=== PATIENT | male | born 1940 ===

== ENCOUNTER 2017-08-18 13:27 | Emergency (ER) | payer MEDICARE, MEDICAID ==
[2017-08-18 13:28] VITALS: BMI 26.2
[2017-08-18 13:32] VITALS: TEMP 97.5; O2SAT 99
[2017-08-18] MEDS ORDERED: Sodium Chloride 0.9% 1,000 ML IV STA (14:07)
[2017-08-18] MEDS ORDERED: Metoprolol Succinate 50 mg XL Tab PO STA (14:16)
[2017-08-18 14:30] LABS: BASO # 0.1 K/uL (0.0-0.2); BASO % 1.1 % (0.0-2.0); EOS # 0.1 K/uL (0.0-0.7); EOS % 1.4 % (0.0-4.0); HEMOGLOBIN 14.8 g/dL (12.0-18.0); LYMPH # 1.7 K/uL (1.0-4.3); LYMPH % 21.8 % (20.0-40.0); MEAN CELL VOLUME 92.4 fl (80.0-94.0); MEAN CORPUSCULAR HGB CONC 33.5 g/dL (33.0-37.0); MEAN PLATELET VOLUME 8.7 fl (7.2-11.7); MONO # 0.6 K/uL (0.0-0.8); MONO % 8.2 % (0.0-10.0); NEUT # 5.3 K/uL (1.8-7.0); NEUT % 67.5 % (50.0-75.0); NRBC % 0.1 % (0.0-0.0); RBC 4.79 Mil/uL (4.40-5.90); RED CELL DISTRIBUTION WIDTH 13.2 % (11.5-14.5); WHITE BLOOD COUNT 7.8 K/uL (4.8-10.8)
--- NOTE | 2017-08-18 14:31 | ED PDOC ---
HPI: Hypertension/Hypotension Time Seen by Provider: 08/18/17 13:42 Chief Complaint (Nursing): High Blood Pressure Chief Complaint (Provider): Frontal Headahe History Per: Patient History/Exam Limitations: no limitations Onset/Duration Of Symptoms: Days (x2) Current Symptoms Are (Timing): Still Present Associated Symptoms: Headache, Other (Thirsty) Additional Complaint(s): 77 year old male presents to the Emergency Department complaining of a constant frontal headache for two days and of being thirsty. Patient claims to have run out of medicine three days ago. Sugar level measured at home was measured over 500. Took ibuprofen for pain showing some relief. Patient denies the worst headache of his life. Also denies visual changes, neck stiffness, fever, photophobia, chest pain, shortness of breath, nausea, vomiting, and abdominal pain. PMD: Dr. Teja Dudley Past Medical History Reviewed: Historical Data, Nursing Documentation, Vital Signs Vital Signs: Last Vital Signs Temp 97.5 F L 08/18/17 13:29 Pulse 93 H 08/18/17 13:29 Resp 16 08/18/17 13:29 BP 170/115 H 08/18/17 13:29 Pulse Ox 99 08/18/17 13:29 - Medical History PMH: Diabetes, HTN, Hypercholesterolemia Denies: Chronic Kidney Disease - Surgical History Surgical History: Denies: CABG - Family History Family History: States: No Known Family Hx - Social History Current smoker - smoking cessation education provided: No Alcohol: None Drugs: Denies - Home Medications Home Medications: Ambulatory Orders Medication Instructions Recorded Clopidogrel [Plavix] 75 mg PO DAILY #30 tab 08/18/17 GlipiZIDE [Glucotrol] 5 mg PO BID #60 tab 08/18/17 Isosorbide Mononitrate [Imdur] 60 mg PO DAILY #30 tab 08/18/17 Linagliptin [Tradjenta] 5 mg PO DAILY #30 tablet 08/18/17 Magnesium Aspartate Dihydrate 500 gm PO BID #60 powder 08/18/17 [Aspartic Acid Magnesium Salt] Metoprolol Succinate [Toprol XL] 50 mg PO DAILY #30 tab 08/18/17 metFORMIN [glucOPHAGE] 500 mg PO BID #60 tab 08/18/17 - Allergies Allergies/Adverse Reactions: Allergies Allergy/AdvReac Type Severity Reaction Status Date / Time No Known Allergies Allergy Verified 08/18/17 13:29 Review of Systems ROS Statement: Except As Marked, All Systems Reviewed And Found Negative Constitutional: Negative for: Fever Eyes: Negative for: Vision Change Cardiovascular: Negative for: Chest Pain Respiratory: Negative for: Shortness of Breath Gastrointestinal: Negative for: Nausea, Vomiting, Abdominal Pain Musculoskeletal: Negative for: Neck Pain (stiffness) Neurological: Positive for: Headache. Negative for: Other (denies photophobia) Physical Exam - Reviewed Nursing Documentation Reviewed: Yes Vital Signs Reviewed: Yes - Physical Exam Appears: Positive for: Non-toxic, No Acute Distress Head Exam: Positive for: ATRAUMATIC, NORMAL INSPECTION, NORMOCEPHALIC Skin: Positive for: Normal Color, Warm, Dry Eye Exam: Positive for: EOMI, Normal appearance, PERRL Neck: Positive for: Normal, Painless ROM, Supple Cardiovascular/Chest: Positive for: Regular Rate, Rhythm. Negative for: Murmur Respiratory: Positive for: Normal Breath Sounds. Negative for: Accessory Muscle Use, Respiratory Distress Gastrointestinal/Abdominal: Positive for: Normal Exam, Bowel Sounds, Soft. Negative for: Tenderness Back: Positive for: Normal Inspection. Negative for: Vertebral Tenderness Extremity: Positive for: Normal ROM. Negative for: Pedal Edema, Deformity Neurologic/Psych: Positive for: Alert, Oriented - Laboratory Results Result Diagrams: 08/18/17 14:00 08/18/17 14:25 - ECG O2 Sat by Pulse Oximetry: 99 (RA) Pulse Ox Interpretation: Normal Medical Decision Making Medical Decision Making: Time: 14:04 Initial Impression: Headache and hyperglycemia Plan: CT Head without contrast EKG CMP Urine Dipstick CBC Chest X-Ray Microzide 12.5 mg PO NS IV 1000 mls/hr Plavix 75 mg PO Toprol XL 50 mg Urinalysis Time: 15:00 Patient will be signed out to Dr. Dee Baker, pending CT Head and reevaluation. Scribe Attestation: Documented by Myranda Cary, acting as a scribe for Johanna Peralta MD Provider Scribe Attestation: All medical record entries made by the Scribe were at my direction and personally dictated by me. I have reviewed the chart and agree that the record accurately reflects my personal performance of the history, physical exam, medical decision making, and the department course for this patient. I have also personally directed, reviewed, and agree with the discharge instructions and disposition Disposition - Clinical Impression Clinical Impression: Hypertension, Hyperglycemia due to type 2 diabetes mellitus, Headache - Patient ED Disposition Is Patient to be Admitted: Transfer of Care - Disposition Referrals: [facility] [Outside] Garrett Bhatia MD [Staff Provider] - Disposition: Transfer of Care Disposition Time: 15:00 Condition: GOOD Additional Instructions: Take your medications as instructed. Return for worsening. Follow up with your PCP in 2-3 days. Prescriptions: Clopidogrel [Plavix] 75 mg PO DAILY #30 tab GlipiZIDE [Glucotrol] 5 mg PO BID #60 tab Isosorbide Mononitrate [Imdur] 60 mg PO DAILY #30 tab Linagliptin [Tradjenta] 5 mg PO DAILY #30 tablet Magnesium Aspartate Dihydrate [Aspartic Acid Magnesium Salt] 500 gm PO BID #60 powder metFORMIN [glucOPHAGE] 500 mg PO BID #60 tab Metoprolol Succinate [Toprol XL] 50 mg PO DAILY #30 tab Instructions: Ischemic Stroke (DC), Hypertension (ED), Diabetic Hyperglycemia ( ED) Patient Signed Over To: Dee Baker (Pending CT Head)
[2017-08-18] MEDS ORDERED: Iodixanol 320 MG/ML 100 ML BOTTLE IV ONE (14:49)
[2017-08-18] MEDS ORDERED: Sodium Chloride 0.9% 50 ML IV ONE (14:50)
[2017-08-18 14:56] LABS: SQUAMOUS EPITHIAL 2 /hpf (0-5); URINE BACTERIA RARE (<OCC); URINE BILIRUBIN NEGATIVE (NEGATIVE); URINE BLOOD NEGATIVE (NEGATIVE); URINE CLARITY SLIGHTY-CLOUDY (Clear); URINE COLOR YELLOW (YELLOW); URINE GLUCOSE (UA) >=500 mg/dL (Normal); URINE LEUKOCYTE ESTERASE NEG Leu/uL (Negative); URINE NITRATE NEGATIVE (NEGATIVE); URINE PROTEIN NEGATIVE (NEGATIVE); URINE UROBILINOGEN 0.2-1.0 mg/dL (0.2-1.0)
[2017-08-18 15:02] LABS: ALB/GLOB RATIO 1.3 (1.0-2.1); ALBUMIN 3.9 g/dL (3.5-5.0); CALCIUM 9.8 mg/dL (8.4-10.2); GFR AFRICAN-AMERICAN > 60; GFR NON-AFRICAN AMERICAN > 60
[2017-08-18 15:05] LABS: ALT/SGPT 31 U/L (21-72); AST/SGOT 25 U/L (17-59)
[2017-08-18 15:06] LABS: BLOOD UREA NITROGEN 12 mg/dl (9-20)
--- NOTE | 2017-08-18 15:34 | ED PDOC ---
- Laboratory Results Result Diagrams: 08/18/17 14:00 08/18/17 14:25 - ECG O2 Sat by Pulse Oximetry: 99 (RA) Medical Decision Making Medical Decision Making: Time: 15:00 Patient is signed to me by Dr. Johanna Peralta, pending CT and reevaluation. Time: 15:51 CT Head without Contrast FINDINGS: HEMORRHAGE: No intracranial hemorrhage. 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 Otherwise , good corticomedullary differentiation is seen. Diffuse expansion of the ventriculosulcal and cisternal spaces is appreciated with white matter lucency compatible with diffuse cerebral atrophy and chronic microangiopathy. No suspicious extra-axial fluid collection is identified and the midline brain anatomy appears grossly nonfocal as imaged. There is no mass effect throughout. A chronic lacune is seen the right thalamus VENTRICLES: Unremarkable. No hydrocephalus. CALVARIUM: Unremarkable. PARANASAL SINUSES: Unremarkable as visualized. No significant inflammatory changes. MASTOID AIR CELLS: Unremarkable as visualized. No inflammatory changes. OTHER FINDINGS: None. IMPRESSION: No definite acute intracranial findings. 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 Follow-up CT or MRI are available as clinically warranted. Time: 17:[address] findings with Dr. Gamez, neurologist on-call, who recommends starting patient in Magnesium, and to continue Plavix. Patient will follow up outpatient. Reviewed vital signs, which show significant improvement in blood pressure. Patient is stable for discharge home. There is agreement to discharge plan. Return if symptoms persist or worsen. Scribe Attestation: Documented by Myranda Cary, acting as a scribe for Dee Baker MD Provider Scribe Attestation: All medical record entries made by the Scribe were at my direction and personally dictated by me. I have reviewed the chart and agree that the record accurately reflects my personal performance of the history, physical exam, medical decision making, and the department course for this patient. I have also personally directed, reviewed, and agree with the discharge instructions and disposition. Disposition Doctor Will See Patient In The: Office Counseled Patient/Family Regarding: Studies Performed, Diagnosis, Need For Followup - Clinical Impression Clinical Impression: Hypertension, Hyperglycemia due to type 2 diabetes mellitus, Headache - POA Present On Arrival: None - Disposition Referrals: [facility] [Outside] Garrett Bhatia MD [Staff Provider] - Disposition: Routine/Home Disposition Time: 17:25 Condition: GOOD Additional Instructions: Take your medications as instructed. Return for worsening. Follow up with your PCP in 2-3 days. Prescriptions: Clopidogrel [Plavix] 75 mg PO DAILY #30 tab GlipiZIDE [Glucotrol] 5 mg PO BID #60 tab Isosorbide Mononitrate [Imdur] 60 mg PO DAILY #30 tab Linagliptin [Tradjenta] 5 mg PO DAILY #30 tablet Magnesium Aspartate Dihydrate [Aspartic Acid Magnesium Salt] 500 gm PO BID #60 powder metFORMIN [glucOPHAGE] 500 mg PO BID #60 tab Metoprolol Succinate [Toprol XL] 50 mg PO DAILY #30 tab Instructions: Hypertension (ED), Ischemic Stroke (DC), Diabetic Hyperglycemia ( ED)
--- NOTE | 2017-08-18 15:53 | CT ---
PROCEDURE: CT HEAD WITHOUT CONTRAST. HISTORY: Frontal ISLAS COMPARISON: None available. TECHNIQUE: Axial computed tomography images were obtained through the head/brain without intravenous contrast. Radiation dose: Total exam DLP = 1277.11 mGy-cm. This CT exam was performed using one or more of the following dose reduction techniques: Automated exposure control, adjustment of the mA and/or kV according to patient size, and/or use of iterative reconstruction technique. FINDINGS: HEMORRHAGE: No intracranial hemorrhage. 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 Otherwise, good corticomedullary differentiation is seen. Diffuse expansion of the ventriculosulcal and cisternal spaces is appreciated with white matter lucency compatible with diffuse cerebral atrophy and chronic microangiopathy. No suspicious extra-axial fluid collection is identified and the midline brain anatomy appears grossly nonfocal as imaged. There is no mass effect throughout. A chronic lacune is seen the right thalamus VENTRICLES: Unremarkable. No hydrocephalus. CALVARIUM: Unremarkable. PARANASAL SINUSES: Unremarkable as visualized. No significant inflammatory changes. MASTOID AIR CELLS: Unremarkable as visualized. No inflammatory changes. OTHER FINDINGS: None. IMPRESSION: No definite acute intracranial findings. 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 Follow-up CT or MRI are available as clinically warranted.
[2017-08-18 19:02] VITALS: BP 130/74; PULSE 61; RESP 18
--- NOTE | 2017-08-18 19:31 | RAD ---
HISTORY: Hyperglycemia COMPARISON: No prior. TECHNIQUE: Chest PA and lateral FINDINGS: LUNGS: No active pulmonary disease. PLEURA: No significant pleural effusion identified. No pneumothorax apparent. CARDIOVASCULAR: Normal. OSSEOUS STRUCTURES: No significant abnormalities. VISUALIZED UPPER ABDOMEN: Normal. OTHER FINDINGS: None. IMPRESSION: No acute cardiopulmonary disease appreciated.
== END 2017-08-18 18:58 | disposition home or self-care (01) ==
LOC: H.ER 13:27
DX: I10 Essential (primary) hypertension (principal); E11.65 Type 2 diabetes mellitus with hyperglycemia; E78.00 Pure hypercholesterolemia, unspecified; Z79.84 Long term (current) use of oral hypoglycemic drugs; R51 Headache
CPT/HCPCS: 70450; 71046; 80053; 81003; 82948; 85025; 96374; 99285; J3475; J7040; Q9967